=== PATIENT | male | born 1960 | race Caucasian/White ===

== ENCOUNTER 2017-02-15 06:00 | Day surgery (SDC) | payer BC ==
[2017-02-10 14:38] VITALS: BMI 26.3
[~2017-02-15 06:00] MED LIST: DEXAMETHASONE SOD PHOSPHATE 10 MG/ML 1 ML VIAL IV ONE; HEPARIN SODIUM,PORCINE 5,000 UNIT/ML 1 ML VIAL SQ ONE; LACTATED RINGERS 1,000 ML IV SCH; LIDOCAINE 1% 20 ML VIAL (10MG/ML) FOR IV START INTRADERMA PRN; ONDANSETRON 4 MG/2 ML VIAL IVP ONE; SCOPOLAMINE 1.5MG/72HR PATCH TRANSDERM ONE; ceFAZolin 2 GM in SODIUM CHLORIDE 0.9% 100 ML IVPB ONE
--- NOTE | 2017-02-15 07:53 | P.GSHP ---
History of Present Illness H&P Date: 02/15/17 Chief Complaint: Recurrent right inguinal hernia This is a 57-year-old male who has developed a recurrent right internal hernia. Patient resents today for open repair of right inguinal hernia. Past Medical History Past Medical History: Hyperlipidemia, Hypertension Additional Past Medical History / Comment(s): PAST HX HYPOGLYCEMIA, NONE SINCE 2000. GOUT. CURRENT RT INGUINAL HERNIA. History of Any Multi-Drug Resistant Organisms: None Reported Past Surgical History: Appendectomy, Joint Replacement Additional Past Surgical History / Comment(s): COLONOSCOPY. TOTAL LT KNEE , ROBOTIC HERNIA Past Anesthesia/Blood Transfusion Reactions: No Reported Reaction Additional Past Anesthesia/Blood Transfusion Reaction / Comment(s): ADOPTED -NO HISTORY Past Psychological History: No Psychological Hx Reported Smoking Status: Former smoker Past Alcohol Use History: Occasional Additional Past Alcohol Use History / Comment(s): STARTED SMOKING AT AGE 15 QUIT IN 1999 SMOKED 3/4-1PPD Past Drug Use History: None Reported - Past Family History Mother Family Medical History: Unable to Obtain Medications and Allergies Home Medications Medication Instructions Recorded Confirmed Type No Known Home Medications [No 02/10/17 02/15/17 History Known Home Medications] Allergies Allergy/AdvReac Type Severity Reaction Status Date / Time No Known Allergies Allergy Verified 02/15/17 06:12 Surgical - Exam Vital Signs Temp Pulse Resp BP Pulse Ox 97.0 F L 51 L 16 142/89 97 02/15/17 06:17 02/15/17 06:17 02/15/17 06:17 02/15/17 06:17 02/15/17 06:17 - General well developed, well nourished, no distress - Eyes PERRL - ENT normal pinna, normal nares - Neck no masses - Respiratory normal expansion - Cardiovascular Rhythm: regular - Abdomen Abdomen: soft, non tender Hernia: inguinal (Right recurrent inguinal hernia) Assessment and Plan Plan: Recurrent right inguinal hernia. We'll perform open repair.
[2017-02-15] MEDS ORDERED: KETOROLAC 30 MG/ML 1 ML VIAL ONE (07:58)
[2017-02-15] MEDS ORDERED: MIDAZOLAM 2 MG/2 ML VIAL ONE (07:58)
[2017-02-15] MEDS ORDERED: SUCCINYLCHOLINE CHLORIDE 100 MG/5 ML SYR IV ONE (07:58)
[2017-02-15] MEDS ORDERED: fentaNYL (PF) 50 MCG/ML 2 ML AMP ONE (07:58)
[2017-02-15] MEDS ORDERED: PROPOFOL 10 MG/ML 20 ML VIAL IV ONE (07:58)
[2017-02-15] MEDS ORDERED: LIDOCAINE 1% INJ 10MG/ML (20 ML MDV) ONE (07:58)
[2017-02-15] MEDS ORDERED: BUPIVACAINE (PF) 0.25% 30 ML VIAL SQ ONE (08:41)
--- NOTE | 2017-02-15 08:47 | P.OP ---
Date of Procedure: 02/15/17 Preoperative Diagnosis: Recurrent right inguinal hernia Postoperative Diagnosis: Recurrent right inguinal hernia Procedure(s) Performed: Right inguinal hernia repair Implants: Anesthesia: MICHAELA Surgeon: Renato Dillon Estimated Blood Loss (ml): 5 Pathology: none sent Condition: stable Disposition: PACU Indications for Procedure: Operative Findings: Description of Procedure: DESCRIPTION OF PROCEDURE: The patient was placed in the supine position after receiving adequate anesthesia. Patients groin was prepped and draped in the usual sterile fashion. A standard hernia incision was made and the subcutaneous tissues were divided with electrocautery. The fascia of the external oblique was exposed. A sebastian the fascia was made with #15 blade. The fascia was then opened with pair of Metzenbaum scissors. A Weitlaner retractor was placed in the wound and the cord structures were grasped and dissected free from the inguinal canal. A rubber Monty drain was placed around the cord structures. The hernial sac was seen on the anterior-medial portion of the cord and this was dissected free from the cord. The hernia sac was then invaginated to the peritoneal cavity. Using blunt finger dissection, the preperitoneal space was dissected and then the Prolene hernial mesh plug was placed into the prepared space. The inferior leaf was expanded. The superior leaf was secured to the pubic tubercle using 2-0 Prolene suture. The lateral portion of the superior leaf was incised and cords tied and secured to the transversalis fascia using 2-0 Prolene suture. Fascia of the external oblique was then closed using #0 Vicryl suture. The Monty drain was removed. The Scarpas fascia was then closed with 3-0 Vicryl suture and skin was closed with 3-0 Monocryl. Patient tolerated procedure well.
[2017-02-15 09:05] VITALS: TEMP 96.8
[2017-02-15] MEDS: HYDROmorphone 1 MG/ML 1 ML SYRINGE IVP PRN ×2 (09:13→09:18)
[2017-02-15 09:31] VITALS: RESP 16
[2017-02-15 10:00] VITALS: BP 145/87; PULSE 47
== END 2017-02-15 10:19 | disposition home or self-care (01) ==
LOC: OR 06:00
PROVIDERS: ATTEND Surgery
DX: K40.90 Unilateral inguinal hernia, without obstruction or gangrene, not specified as recurrent (principal); Z87.891 Personal history of nicotine dependence
CPT/HCPCS: 49520; C1781; J2250; J1644; J1100; J0690; J2405; J2001; J3010; J1885; J1170; J0330; J2704

== ENCOUNTER 2021-01-08 10:43 | Inpatient (IN) | payer BC ==
--- NOTE | 2021-01-08 11:15 | ED ---
General Adult HPI - General Chief complaint: Neuro Symptoms/Deficit Stated complaint: vision loss/2x last week Time Seen by Provider: 01/08/21 10:59 Source: patient, family, RN notes reviewed Mode of arrival: ambulatory Limitations: no limitations - History of Present Illness Initial comments: Patient is a pleasant 61-year-old male presenting to the emergency department with concern for loss of vision with left eye. Incident last occurred 2 days ago and lasted 3-5 minutes. Patient states everything was collins. Patient could not see specific silhouettes. Patient unclear if he can see light or dark. This was painless. Patient did have a similar episode a few days prior to that however did not last as long. Vision is completely normal at this time. No speech Problems. No extremity weakness. No confusion. - Related Data Previous Rx's Medication Instructions Recorded Docusate [Colace] 100 mg PO BID #20 capsule 02/15/17 HYDROcodone/APAP 7.5-325MG [Peralta 1 each PO Q4H PRN #60 tab 02/15/17 7.5] Allergies Allergy/AdvReac Type Severity Reaction Status Date / Time No Known Allergies Allergy Verified 01/08/21 10:58 Review of Systems ROS Statement: Those systems with pertinent positive or pertinent negative responses have been documented in the HPI. ROS Other: All systems not noted in ROS Statement are negative. Constitutional: Denies: fever Eyes: Reports: as per HPI, vision change ENT: Denies: ear pain Respiratory: Denies: cough Cardiovascular: Denies: chest pain Endocrine: Denies: fatigue Gastrointestinal: Denies: abdominal pain Genitourinary: Denies: dysuria Musculoskeletal: Denies: back pain Skin: Denies: rash Neurological: Denies: headache, weakness, confusion Past Medical History Past Medical History: Hyperlipidemia, Hypertension Additional Past Medical History / Comment(s): PAST HX HYPOGLYCEMIA, NONE SINCE 2000. GOUT. CURRENT RT INGUINAL HERNIA. History of Any Multi-Drug Resistant Organisms: None Reported Past Surgical History: Appendectomy, Joint Replacement Additional Past Surgical History / Comment(s): COLONOSCOPY. TOTAL LT KNEE , ROBOTIC HERNIA Past Anesthesia/Blood Transfusion Reactions: No Reported Reaction Additional Past Anesthesia/Blood Transfusion Reaction / Comment(s): ADOPTED -NO HISTORY Past Psychological History: No Psychological Hx Reported Smoking Status: Never smoker Past Alcohol Use History: Occasional Past Drug Use History: Marijuana - Past Family History Mother Family Medical History: Unable to Obtain General Exam Limitations: no limitations General appearance: alert, in no apparent distress Head exam: Present: atraumatic Eye exam: Present: normal appearance, PERRL, EOMI Expanded Eyelids: Normal Inspection: Bilateral Pupils: Regular, Round: Bilateral, Reactive: Bilateral Sclera/Conjunctival: Normal Inspection: Bilateral Posterior chamber: Normal Inspection: Bilateral ENT exam: Present: normal oropharynx Neck exam: Present: normal inspection Respiratory exam: Present: normal lung sounds bilaterally Cardiovascular Exam: Present: regular rate, normal rhythm GI/Abdominal exam: Present: soft. Absent: tenderness Extremities exam: Present: normal inspection Neurological exam: Present: alert, oriented X3, CN II-XII intact. Absent: motor sensory deficit Expanded Neurological exam: Present: protecting the airway Speech: Present: fluid speech Cranial nerves: EOM's Intact: Normal, Facial Sensation: Normal Sensory exam: Upper Extremity Light Touch: Normal, Lower Extremity Light Touch: Normal Motor strength exam: RUE: 5, LUE: 5, RLE: 5, LLE: 5 Eye Response: (4) open spontaneously Motor Response: (6) obeys commands Verbal Response: (5) oriented Psychiatric exam: Present: normal affect, normal mood Skin exam: Present: normal color Course Vital Signs 01/08/21 01/08/21 10:55 12:32 Temperature 98.3 F Pulse Rate 52 L 46 L Respiratory 18 16 Rate Blood Pressure 136/83 128/80 O2 Sat by Pulse 93 L 99 Oximetry - Reevaluation(s) Reevaluation #1: 01/08/21 11:57 Case was discussed with Dr. Haynes with ophthalmology who states he would be happy to see patient in office however has more concern for neurological cause of symptoms. EKG Findings - EKG Comments: EKG Findings:: Sinus bradycardia with a rate of 42. WV 136. QRS 100. QT 440. QTc 367. Normal axis. Normal QRS. No acute ST change. Medical Decision Making - Lab Data Result diagrams: 01/08/21 11:36 01/08/21 11:36 Lab Results 01/08/21 01/08/21 01/08/21 Range/Units 11:36 11:36 11:36 WBC 6.0 (3.8-10.6) k/uL RBC 4.91 (4.30-5.90) m/uL Hgb 15.2 (13.0-17.5) gm/dL Hct 44.1 (39.0-53.0) % MCV 89.9 (80.0-100.0) fL MCH 31.1 (25.0-35.0) pg MCHC 34.5 (31.0-37.0) g/dL RDW 13.2 (11.5-15.5) % Plt Count 206 (150-450) k/uL MPV 7.4 Neutrophils % 64 % Lymphocytes % 24 % Monocytes % 5 % Eosinophils % 5 % Basophils % 0 % Neutrophils # 3.9 (1.3-7.7) k/uL Lymphocytes # 1.4 (1.0-4.8) k/uL Monocytes # 0.3 (0-1.0) k/uL Eosinophils # 0.3 (0-0.7) k/uL Basophils # 0.0 (0-0.2) k/uL PT 10.4 (9.0-12.0) sec INR 1.0 (<1.2) APTT 25.1 (22.0-30.0) sec Sodium 140 (137-145) mmol/L Potassium 4.5 (3.5-5.1) mmol/L Chloride 107 (98-107) mmol/L Carbon Dioxide 27 (22-30) mmol/L Anion Gap 6 mmol/L BUN 18 (9-20) mg/dL Creatinine 0.85 (0.66-1.25) mg/dL Est GFR (CKD-EPI)AfAm >90 (>60 ml/min/1.73 sqM) Est GFR (CKD-EPI)NonAf >90 (>60 ml/min/1.73 sqM) Glucose 95 (74-99) mg/dL Calcium 9.6 (8.4-10.2) mg/dL Total Bilirubin 0.8 (0.2-1.3) mg/dL AST 25 (17-59) U/L ALT 20 (4-49) U/L Alkaline Phosphatase 37 L (38-126) U/L Troponin I (0.000-0.034) ng/mL Total Protein 7.1 (6.3-8.2) g/dL Albumin 4.2 (3.5-5.0) g/dL 01/08/21 Range/Units 11:36 WBC (3.8-10.6) k/uL RBC (4.30-5.90) m/uL Hgb (13.0-17.5) gm/dL Hct (39.0-53.0) % MCV (80.0-100.0) fL MCH (25.0-35.0) pg MCHC (31.0-37.0) g/dL RDW (11.5-15.5) % Plt Count (150-450) k/uL MPV Neutrophils % % Lymphocytes % % Monocytes % % Eosinophils % % Basophils % % Neutrophils # (1.3-7.7) k/uL Lymphocytes # (1.0-4.8) k/uL Monocytes # (0-1.0) k/uL Eosinophils # (0-0.7) k/uL Basophils # (0-0.2) k/uL PT (9.0-12.0) sec INR (<1.2) APTT (22.0-30.0) sec Sodium (137-145) mmol/L Potassium (3.5-5.1) mmol/L Chloride (98-107) mmol/L Carbon Dioxide (22-30) mmol/L Anion Gap mmol/L BUN (9-20) mg/dL Creatinine (0.66-1.25) mg/dL Est GFR (CKD-EPI)AfAm (>60 ml/min/1.73 sqM) Est GFR (CKD-EPI)NonAf (>60 ml/min/1.73 sqM) Glucose (74-99) mg/dL Calcium (8.4-10.2) mg/dL Total Bilirubin (0.2-1.3) mg/dL AST (17-59) U/L ALT (4-49) U/L Alkaline Phosphatase (38-126) U/L Troponin I <0.012 (0.000-0.034) ng/mL Total Protein (6.3-8.2) g/dL Albumin (3.5-5.0) g/dL - Radiology Data Radiology results: report reviewed (Computed tomography scan of the brain negative for acute abnormality), image reviewed ( reveals no acute process) Disposition Clinical Impression: Transient cerebral ischemia Disposition: ADMITTED IP TO THIS [facility] Is patient prescribed a controlled substance at d/c from ED?: No Referrals: None,Stated [Primary Care Provider] - 1-2 days Decision Time: 12:52
[2021-01-08 11:48] LABS: Basophils % (A) 0 %; Eosinophils # (A) 0.3 k/uL (0-0.7); Eosinophils % (A) 5 %; HCT 44.1 % (39.0-53.0); HGB 15.2 gm/dL (13.0-17.5); Lymphocytes # (A) 1.4 k/uL (1.0-4.8); Lymphocytes % (A) 24 %; MCH 31.1 pg (25.0-35.0); MCHC 34.5 g/dL (31.0-37.0); MCV 89.9 fL (80.0-100.0); Mean Platelet Volume 7.4; Monocytes # (A) 0.3 k/uL (0-1.0); Monocytes % (A) 5 %; Neutrophils # (A) 3.9 k/uL (1.3-7.7); Neutrophils % (A) 64 %; Platelet Count 206 k/uL (150-450); RBC 4.91 m/uL (4.30-5.90); RDW 13.2 % (11.5-15.5)
[2021-01-08 11:58] LABS: ALT 20 U/L (4-49); AST 25 U/L (17-59); African American GFR (CKD) >90 (>60 ml/min/1.73 sqM); Albumin 4.2 g/dL (3.5-5.0); Alkaline Phosphatase 37 U/L (38-126); Anion Gap 6 mmol/L; Blood Urea Nitrogen 18 mg/dL (9-20); Calcium 9.6 mg/dL (8.4-10.2); Carbon Dioxide 27 mmol/L (22-30); Chloride 107 mmol/L (98-107); Glucose 95 mg/dL (74-99); Non-African American GFR(CKD) >90 (>60 ml/min/1.73 sqM); Potassium 4.5 mmol/L (3.5-5.1); Sodium 140 mmol/L (137-145); Total Bilirubin 0.8 mg/dL (0.2-1.3); Total Protein 7.1 g/dL (6.3-8.2)
--- NOTE | 2021-01-08 12:08 | CT ---
EXAMINATION TYPE: CT brain wo con for TPA DATE OF EXAM: 01/08/2021 HISTORY: loss of vision Lt eye 2 days ago. Acute onset neurological deficit. Code stroke. CT DLP: 1059.4 mGycm. Automated Exposure Control for Dose Reduction was Utilized. TECHNIQUE: CT scan of the head is performed without contrast. COMPARISON: None. FINDINGS: There is no acute intracranial hemorrhage or midline shift identified. Ventricles and sul ci are within normal limits in size for patient's age. Cormier-white matter differentiation fairly well maintained. The globes are intact and the visualized sinuses are clear. IMPRESSION: No acute intracranial hemorrhage or midline shift.
--- NOTE | 2021-01-08 12:10 | XR ---
EXAMINATION TYPE: XR chest 2V DATE OF EXAM: 01/08/2021 COMPARISON: NONE HISTORY: Altered mental status, vision loss, weakness. TECHNIQUE: Frontal and lateral views of the chest are obtained. FINDINGS: There is mild chronic parenchymal changes without suspicious focal air space opacity, pleu ral effusion, or pneumothorax seen. The cardiac silhouette size is within normal limits. The osseo us structures are intact. Overlying EKG leads are present. IMPRESSION: No acute cardiopulmonary process.
[2021-01-08 12:17] LABS: Partial Thromboplastin Time 25.1 sec (22.0-30.0); Prothrombin Time 10.4 sec (9.0-12.0)
[2021-01-08] MEDS ORDERED: ASPIRIN 325 MG TAB PO STA (12:52)
[2021-01-08] MEDS ORDERED: ATORVASTATIN 80 MG TAB PO STA (13:18)
--- NOTE | 2021-01-08 13:33 | US ---
EXAMINATION TYPE: US carotid duplex BILAT DATE OF EXAM: 01/08/2021 COMPARISON: NONE CLINICAL HISTORY: Stenosis. Pt states transient vision loss in left eye EXAM MEASUREMENTS: RIGHT: Peak Systolic Velocity (PSV) cm/sec ----- Right CCA: 76.8 ----- Right ICA: 96.6 ----- Right ECA: 116.1 ICA/CCA ratio: 1.3 RIGHT: End Diastole cm/sec ----- Right CCA: 21.9 ----- Right ICA: 30.7 ----- Right ECA: 11.1 LEFT: Peak Systolic Velocity (PSV) cm/sec ----- Left CCA: 49.0 ----- Left ICA: 392.8 ----- Left ECA: 133.8 ICA/CCA ratio: 8.0 LEFT: End Diastole cm/sec ----- Left CCA: 7.8 ----- Left ICA: 123.7 ----- Left ECA: 17.5 VERTEBRALS (direction of flow): Right Vertebral: Antegrade Left Vertebral: Antegrade Rhythm: Normal Significant, high-grade stenosis within left ICA intimal thickening is present. There are focal p laques present. IMPRESSION: 1. Atheromatous plaquing activity into significant flow-limiting stenosis greater than 70% within the left internal carotid artery. Criteria for Assigning % of Stenosis / Diameter reduction (Estimation based on the indirect measurements of the internal carotid artery velocities (ICA PSV). 1. Normal (no stenosis)=ICA PSV < 125 cm/s: ratio < 2.0: ICA EDV<40 cm/s. 2. Less than 50% stenosis=ICA PSV < 125 cm/s: ratio < 2.0: ICA EDV<40 cm/s. 3. 50 to 69% stenosis=ICA PSV of 125 to 230 cm/s: ration 2.0 ? 4.0: ICA EDV 40-100 cm/s. 4. Greater than 70% stenosis to near occlusion= ICA PSV > 230 cm/s: ratio > 4.0: ICA EDV > 100 cm/s. 5. Near occlusion= ICA PSV velocities may be low or undetectable: variable ratio and ICA EDV. 6. Total occlusion=unable to detect flow.
[2021-01-08] MEDS: SODIUM CHLORIDE 0.9% 1,000 ML IV SCH ×2 (13:34→23:30)
[2021-01-08] MEDS ORDERED: CLOPIDOGREL 75 MG TAB PO STA (13:47)
--- NOTE | 2021-01-08 14:09 | P.CNNES ---
History of Present Illness Consult date: 01/08/21 Requesting physician: Sánchez Koch Reason for Consult: vision loss left eye concern for transient ischemic attack History of Present Illness: This is a 61-year-old gentleman with history of hyperlipidemia, hypertension that presented to the emergency department on 01/08/2021 for vision loss over the left eye. Per the patient and the last 1 week he noticed some vision change and felt off tired but could not make out of the vision change and which I was. Then about 2 days ago in the afternoon all of a sudden he noticed that the left eye all of a sudden became collins and he could not see out of it and the episode lasted for about 3-10 minutes. He felt weak during the episode and tired and it was a diffuse. Denied any focal weakness, numbness, difficulty getting his words out. Denies of any double vision. Denies any jaw pain or pain with chewing. His symptoms resolved and he has not had any further episode. He said that for the last couple weeks possibly 2-3 weeks he's been having left-sided headache and he felt that was a dull that was intermittent, stated it was 8/10 but cannot tell me how long it lasted for. Denied any photophobia, phonophobia, nausea or vomiting. He's been having headaches since the getting his covid vaccine about a month ago ([employer]). He did state that he was in the past on blood pressure medication for his hypertension as well as the cholesterol medication but has not been on it for years since he was having the side effects such as cramping. He said that when he is to follow up with his primary care he was told that his blood pressure was normal but the last time he followed up with them was possibly 2-1/2 years ago. She denies any history of migraines in the past. As stated above he feels back to his baseline. He denies of any stroke or transient ischemic attack Initial vital signs: Blood pressure of 136/83, heart rate of 52, respiratory of 18, temperature of 98.3 Fahrenheit oral and the pulse ox of [address] of the head is reported as no acute intracranial hemorrhage or midline shift. EKG is reported as marked sinus bradycardia. Abnormal EKG. The basic CBC and then BMP were reviewed and were normal. The glucose was 95 and that was a serum which is considered normal. Coagulation study is PT of 10.4, INR is 1.0 and PTT of 25.1. Review of Systems Review of system: The 12 point system was reviewed and apparent positive and negative per HPI. Past Medical History Past Medical History: Hyperlipidemia, Hypertension Additional Past Medical History / Comment(s): PAST HX HYPOGLYCEMIA, NONE SINCE 2000. GOUT. CURRENT RT INGUINAL HERNIA. History of Any Multi-Drug Resistant Organisms: None Reported Past Surgical History: Appendectomy, Joint Replacement Additional Past Surgical History / Comment(s): COLONOSCOPY. TOTAL LT KNEE , ROBOTIC HERNIA Past Anesthesia/Blood Transfusion Reactions: No Reported Reaction Additional Past Anesthesia/Blood Transfusion Reaction / Comment(s): ADOPTED -NO HISTORY Past Psychological History: No Psychological Hx Reported Smoking Status: Never smoker Past Alcohol Use History: Occasional Past Drug Use History: Marijuana - Past Family History Mother Family Medical History: Unable to Obtain Father Family Medical History: Diabetes Mellitus Additional Family Medical History / Comment(s): Pt is adopted and only knows diabetes ran on natural father's side of family. Medications and Allergies Home Medications Medication Instructions Recorded Confirmed Type No Known Home Medications 01/08/21 01/08/21 History Allergies Allergy/AdvReac Type Severity Reaction Status Date / Time No Known Allergies Allergy Verified 01/08/21 12:53 Physical Examination - Vital Signs Vital Signs: Vital Signs Temp Pulse Resp BP Pulse Ox 01/08/21 12:32 46 L 16 128/80 99 01/08/21 10:55 98.3 F 52 L 18 136/83 93 L Intake and Output 01/07/21 01/08/21 01/08/21 22:59 06:59 14:59 Other: Weight 92.986 kg GENERAL: The patient is lying in bed and is not in acute distress. CHEST: The heart rate is regular rate rhythm. No murmurs to auscultation. No carotid bruit bilaterally. LUNG: Clear to auscultation bilaterally no wheezing noted throughout. Not labored breathing. ABDOMEN/GI: Bowel sounds present in all 4 quadrants. No tenderness to palpation throughout. NEUROLOGICAL: Higher mental function: The patient is awake, alert, oriented to self, place and time. Patient is following commands. No aphasia and no neglect. Cranial nerves: The pupils are round, right is 5mm and left 4mm and reactive to light and accommodation. Visual serrano are full to confrontation throughout. Visual acuity is 20/25 OD and 20/30 OS without correction. Extraocular movement is intact no nystagmus is noted. Facial sensation is normal to touch throughout. The facial strength is normal throughout. Hearing is normal bilaterally to hand rub. Tongue is midline and moved dset-[id number]-[id number] without any difficulty. No dysarthria is noted. Shoulder shrug is normal bilaterally. Motor: Gait is deferred. The strength is 5 over 5 throughout. Normal tone and bulk. Cerebellum: Normal finger to nose heel to chin bilaterally. Sensation: Sensation is normal to touch throughout. Reflexes (right/left):0-1+ over the left knee (has prosthetic knee) . Otherwise 2+ throughout. Plantars are downgoing bilaterally. Results - Laboratory Findings CBC and BMP: 01/08/21 11:36 01/08/21 11:36 Abnormal Lab Findings: Abnormal Labs 01/08/21 11:36 Alkaline Phosphatase 37 L Assessment and Plan Assessment: Amarousis fugax (transient episode of left vision loss). Possibly due to patie nt risk factor of HTN and hypercholestremia (not taking medication since had sheridan-effect to them). Hypertension (not compliant with medication) Hyperlipidemia (not compliant with medication) Plan: The patient was given aspirin 325 once was started on aspirin 325 daily. I started the patient on aspirin 81 mg and Plavix 75 mg daily for now. I loaded with Plavix 300mg once and Lipitor 80 mg once then to be on the Lipitor 40 mg daily for secondary stroke prophylaxis (will not start Lipitor 80mg daily since in past has side-effects with statin but does not recall name or dose). I ordered MRI of the brain. I ordered CT of the head and neck to rule out any intracranial or carotid stenosis Lipid panel, 2-D echo and carotid duplex are ordered by the ED team. Ordered TSH, ESR and CRP level. On continuous cardiac monitoring Q 4hour neuro checks. PT, OT and CIVIL DRAFTER are consulted. Ophthalmology team is consulted. The plan is discussed with the patient and his nurse. Thank you for the consultation. Tk Silver M.D. Neuro-hospitalist Time with Patient: Greater than 30
--- NOTE | 2021-01-08 16:08 | CT ---
EXAMINATION TYPE: CT angio head neck DATE OF EXAM: 01/08/2021 HISTORY: Left vision loss COMPARISON: Carotid ultrasound earlier today. CT DLP: 600.1 mGycm. Automated Exposure Control for Dose Reduction was Utilized. TECHNIQUE: CTA scan of the head and neck are performed with IV Contrast, patient injected with 65 mL of Isovue 370, axial images are obtained, coronal and sagittal reformatted images are reviewed. Thre e-D reconstructed images are created on an independent workstation and reviewed. FINDINGS: Carotid/Vascular Structures: Mild peripheral plaque at level aortic arch. Normal three-vessel origin from aortic arch. Normal origin right common carotid artery from right brachiocephalic artery. No sig nificant plaque or stenosis in common carotid arteries bilaterally. There is mild mixed plaque right carotid bulb with more prominent noncalcified plaque extending into the external carotid artery. Ther e is additional abnormal soft tissue probable noncalcified plaque surrounding the proximal right inte rnal carotid artery without significant stenosis. Some narrowing is present measuring under 50%. Mild to moderate calcified plaque distal supraclinoid segment. More moderate to severe mixed plaque left carotid bulb extends into internal and external carotid art eries. There is significant stenosis on the left confirmed. There is short segment of nonvisualized f low consistent with complete occlusion raw data image 405 for reference. Remainder left internal james tid artery shows diminished flow versus opposite right side. Patent bilateral external carotid arteri es without greater than 50% stenosis. Codominant vertebrobasilar system. Vertebral arteries are patent to basilar junction. Hypoplastic fina ateral posterior communicating arteries. No additional significant focal stenosis. Anterior circulati on shows poor visualization of anterior communicating artery. No significant focal stenosis or aneury sm. Other: Loss of normal cervical curvature with mild disc space narrowing C5-C6 and C6-C7 levels. S-sha ped scoliotic curvature on coronal images. IMPRESSION: Confirmation of significant stenosis proximal left internal carotid artery, complete occl usion over short segment is felt present. There is poor or diminished flow in the left internal carot id artery distal to this versus the opposite right side.
--- NOTE | 2021-01-08 21:08 | P.HPIM ---
History of Present Illness H&P Date: 01/08/21 Chief Complaint: Left eye blurred vision Patient is a 61-year-old male with a known history of hypertension, hyperlipidemia currently not on any medications and occasional marijuana use presents to ER with complaints of blurry vision in the left eye. Patient felt like everything was collins when he closes his right eye. Patient was able to see well by closing left eye. Patient had this episode occurred about 2 days ago and lasted about 3 to 5 minutes. Since then patient has been having some blurry vision. Denied any fever or chills. No cough or sputum production. No recent infection. No chest pain or shortness breath. No palpitations. No leg swelling. No focal weakness or slurred speech. No complaints of double vision. No jaw pain or temporal pain jaw claudication. Patient states that he had [employer] COVID-19 vaccine about a month ago and started having occasional headaches few days after. CT head showed no acute intracranial process Chest x-ray showed no acute cardiopulmonary process EKG showed marked sinus bradycardia. Abnormal EKG. Heart rate for 42 Laboratory data showed WBC 6.0 hemoglobin 15.2 and platelets 206 BUN 18 and creatinine 0.85 AST 25 ALT 20 alk phos 37 troponin less than 0.012 and coronavirus PCR not detected. Review of Systems Constitutional: Patient denies any fever or chills . No generalized weakness or weight loss. Abdomen: Patient denied nausea vomiting and diarrhea and abdominal pain. Cardiovascular: Patient denies any chest pain or short of breath no palpitations. Respiratory: patient denied any cough or sputum production. No shortness of breath Neurologic: Patient denied any numbness or tingling headache. Left eye blurred vision Musculoskeletal: Patient denies any complaints of joint swelling or deformity. Skin: Negative Psychiatric: Negative Endocrine: No heat or cold intolerance. No recent weight gain. Genitourinary: No dysuria or hematuria. All other 14 point ROS negative except the above Past Medical History Past Medical History: Hyperlipidemia, Hypertension Additional Past Medical History / Comment(s): PAST HX HYPOGLYCEMIA, NONE SINCE 2000. GOUT. CURRENT RT INGUINAL HERNIA. History of Any Multi-Drug Resistant Organisms: None Reported Past Surgical History: Appendectomy, Joint Replacement Additional Past Surgical History / Comment(s): COLONOSCOPY. TOTAL LT KNEE , ROBOTIC HERNIA Past Anesthesia/Blood Transfusion Reactions: No Reported Reaction Additional Past Anesthesia/Blood Transfusion Reaction / Comment(s): ADOPTED -NO HISTORY Past Psychological History: No Psychological Hx Reported Smoking Status: Never smoker Past Alcohol Use History: Occasional Past Drug Use History: Marijuana - Past Family History Mother Family Medical History: Unable to Obtain Additional Family Medical History / Comment(s): Pt is adopted and only knows heart disease ran on natural mother's side of family Father Family Medical History: Diabetes Mellitus Additional Family Medical History / Comment(s): Pt is adopted and only knows diabetes ran on natural father's side of family. Medications and Allergies Home Medications Medication Instructions Recorded Confirmed Type No Known Home Medications 01/08/21 01/08/21 History Allergies Allergy/AdvReac Type Severity Reaction Status Date / Time No Known Allergies Allergy Verified 01/08/21 12:53 Physical Exam Vitals: Vital Signs Temp Pulse Resp BP Pulse Ox 01/08/21 13:41 45 L 16 130/98 99 01/08/21 12:32 46 L 16 128/80 99 01/08/21 10:55 98.3 F 52 L 18 136/83 93 L Intake and Output 01/07/21 01/08/21 01/08/21 22:59 06:59 14:59 Other: Weight 92.986 kg PHYSICAL EXAMINATION: Patient is lying in the bed comfortably, no acute distress, awake alert and oriented.. HEENT: Normocephalic. Neck is supple. Pupils reactive. Nostrils clear. Oral cavity is moist. Ears reveal no drainage. Neck reveals no JVD, carotid bruits, or thyromegaly. CHEST EXAMINATION: Trachea is central. Symmetrical expansion. Lung serrano clear to auscultation and percussion. CARDIAC: Normal S1, S2 with no gallops. No murmurs ABDOMEN: Soft. Bowel sounds normal. No organomegaly. No abdominal bruits. Extremities: reveal no edema. No clubbing or cyanosis Neurologically awake, alert, oriented x3 with well-coordinated movements. No focal deficits noted Skin: No rash or skin lesions. Psychiatric: Coperative. Nonsuicidal Musculoskeletal: No joint swelling or deformity. Normal range of motion. Results CBC & Chem 7: 01/08/21 11:36 01/08/21 11:36 Labs: Abnormal Lab Results - Last 24 Hours (Table) 01/08/21 Range/Units 11:36 Alkaline Phosphatase 37 L (38-126) U/L Thrombosis Risk Factor Assmnt - DVT/VTE Prophylaxis DVT/VTE Prophylaxis: Pharmacologic Prophylaxis ordered - Choose All That Apply Any of the Below Risk Factors Present?: Yes Other Risk Factors: Yes Each Risk Factor Represents 2 Points: Age 61-74 years Other congenital or acquired thrombophilia - If yes, enter type in comment: No Each Risk Factor Represents 5 Points: Stroke (< 1 month) Thrombosis Risk Factor Assessment Total Risk Factor Score: 7 Thrombosis Risk Factor Assessment Level: High Risk Assessment and Plan Assessment: Transient left eye vision loss. Rule out acute CVA Sinus bradycardia Hypertension not on any medications Hyperlipidemia not on any medications at home History of marijuana use DVT prophylaxis Plan: Patient will be continued telemetry monitoring. Started on aspirin and Plavix as per neurology recommendations. Patient was given a dose of aspirin 325 mg once in the ER. Loading dose of Plavix was given. Stroke work-up including MRI of the brain and CT angiogram of the head and neck was ordered. 2D echocardiogram Follow-up TSH A1c level and B12 and CRP levels. Neurology is on board. Further recommendations based on the clinical course. Time with Patient: Greater than 30
[2021-01-09 00:43] LABS: C Reactive Protein <0.4 mg/dL (0.0-0.8)
[2021-01-09 01:34] LABS: Hemoglobin A1C 5.6 % (4.0-6.0)
[2021-01-09] MEDS: SODIUM CHLORIDE 0.9% 1,000 ML IV SCH ×2 (07:59→10:25)
[2021-01-09] MEDS: ASPIRIN 81 MG PO SCH (07:59)
--- NOTE | 2021-01-09 08:21 | ECHOF ---
Referral Reason:Thrombus MEASUREMENTS -------- HEIGHT: 185.4 cm WEIGHT: 93.0 kg BP: 128/80 RVIDd: 3.4 cm (< 3.3) IVSd: 1.3 cm (0.6 - 1.1) LVIDd: 4.9 cm (3.9 - 5.3) LVPWd: 1.2 cm (0.6 - 1.1) IVSs: 1.7 cm LVIDs: 3.1 cm LVPWs: 1.6 cm LA Diam: 3.7 cm (2.7 - 3.8) LAESV Index (A-L): 28.66 ml/m Ao Diam: 4.1 cm (2.0 - 3.7) AV Cusp: 2.4 cm (1.5 - 2.6) MV EXCURSION: 15.293 mm (> 18.000) MV EF SLOPE: 141 mm/s (70 - 150) EPSS: 0.5 cm MV E Anil: 1.03 m/s MV DecT: 187 ms MV A Anil: 0.60 m/s MV E/A Ratio: 1.72 RAP: 15.00 mmHg RVSP: 49.77 mmHg FINDINGS -------- Sinus rhythm. This was a technically good study. The left ventricular size is normal. There is mild concentric left ventricular hypertrophy. Overa ll left ventricular systolic function is normal with, an EF between 60 - 65 %. The right ventricle is mildly enlarged. Normal LA size by volume 22+/-6 ml/m2. The right atrium is normal in size. Interatrial and interventricular septum intact. The aortic valve is trileaflet, and appears structurally normal. No aortic stenosis or regurgitation. Mild mitral regurgitation is present. Mild tricuspid regurgitation present. There is moderate pulmonary hypertension. The right ventric ular systolic pressure, as measured by Doppler, is 49.77mmHg. Trace/mild (physiologic) pulmonic regurgitation. The aortic root is dilated measuring 4.1cm. The inferior vena cava is dilated with poor inspiratory collapse which is consistent with estimated r ight atrial pressure of 15mmHg. There is no pericardial effusion. CONCLUSIONS -------- 1. The left ventricular size is normal. 2. There is mild concentric left ventricular hypertrophy. 3. Overall left ventricular systolic function is normal with, an EF between 60 - 65 %. 4. The right ventricle is mildly enlarged. 5. Normal LA size by volume 22+/-6 ml/m2. 6. The aortic valve is trileaflet, and appears structurally normal. No aortic stenosis or regurgitati on. 7. Mild mitral regurgitation is present. 8. Mild tricuspid regurgitation present. 9. There is moderate pulmonary hypertension. 10. The right ventricular systolic pressure, as measured by Doppler, is 49.77mmHg. 11. Trace/mild (physiologic) pulmonic regurgitation. 12. The aortic root is dilated measuring 4.1cm. 13. The inferior vena cava is dilated with poor inspiratory collapse which is consistent with estimat ed right atrial pressure of 15mmHg. 14. There is no pericardial effusion. HUMAN FACTORS ERGONOMIST: Yanelis Mireles RDCS
[2021-01-09] MEDS ORDERED: CLOPIDOGREL 75 MG TAB PO SCH (09:00)
[2021-01-09] MEDS ORDERED: ASPIRIN 325 MG TAB PO SCH (09:00)
--- NOTE | 2021-01-09 10:17 | P.GSCN ---
History of Present Illness Consult date: 01/09/21 Reason for Consult: Symptomatic left internal carotid artery stenosis Requesting physician: Tk Silver History of present illness: This is a pleasant 61-year-old male with a history of hyperlipidemia and hypertension that presented to the emergency department yesterday for vision loss over the left eye. He is a former smoker, smoked 1 PPD for 20 years, he quit 20 years ago. The patient states that last week he also noticed some vision change of the left eye. He states on Wednesday he noticed a sudden loss of vision in his left eye where became collins and he could not see out of that eye, the episode lasted approximately 3-10 minutes. He also felt weak during the episode and tired. Denying any focal weakness, numbness, speech difficulty or difficulty with swallowing. He also states that prior to last 2 weeks he had been having left-sided headaches that were dull and intermittent. He currently states his vision is normal other than having some possible blurriness. He denies double vision, headache, shortness of breath, chest pain, nausea, vomiting, upper or lower extremity weakness, difficulty speaking, or difficulty swallowing. CT of the brain shows no acute intracranial hemorrhage or midline shift Carotid Doppler shows right ICA 96.6, with an ICA/CCA ratio 1.3, left ICA 392.8, ICA/CCA ratio 8.0. Significant high-grade stenosis within the left ICA, intimal thickening is present. There are focal plaques present. Atheromatous plaquing activity into significant flow-limiting stenosis greater than 70% within the left internal carotid artery. CT angiogram of head and neck show confirmation of significant stenosis proximal left internal carotid artery, complete occlusion over a short segment is felt present. There is poor diminished flow in the left internal carotid artery dis tam to this versus the opposite right side. Right internal carotid artery without significant stenosis. There is some narrowing present measuring under 50%. Mild to moderate calcified plaque distal supraclinoid segment. Review of Systems A 14 point review systems was completed all pertinent positives and negatives as stated in the HPI Past Medical History Past Medical History: Hyperlipidemia, Hypertension Additional Past Medical History / Comment(s): PAST HX HYPOGLYCEMIA, NONE SINCE 2000. GOUT. CURRENT RT INGUINAL HERNIA. History of Any Multi-Drug Resistant Organisms: None Reported Past Surgical History: Appendectomy, Joint Replacement Additional Past Surgical History / Comment(s): COLONOSCOPY. TOTAL LT KNEE , ROBOTIC HERNIA Past Anesthesia/Blood Transfusion Reactions: No Reported Reaction Additional Past Anesthesia/Blood Transfusion Reaction / Comm: ADOPTED -NO H ISTORY Past Psychological History: No Psychological Hx Reported Smoking Status: Never smoker Past Alcohol Use History: Occasional Past Drug Use History: Marijuana - Past Family History Mother Family Medical History: Unable to Obtain Additional Family Medical History / Comment(s): Pt is adopted and only knows heart disease ran on natural mother's side of family Father Family Medical History: Diabetes Mellitus Additional Family Medical History / Comment(s): Pt is adopted and only knows diabetes ran on natural father's side of family. Medications and Allergies Home Medications Medication Instructions Recorded Confirmed Type No Known Home Medications 01/08/21 01/08/21 History Allergies Allergy/AdvReac Type Severity Reaction Status Date / Time No Known Allergies Allergy Verified 01/08/21 12:53 Surgical - Exam Vital Signs Temp Pulse Resp BP Pulse Ox 98.3 F 52 L 18 136/83 93 L 01/08/21 10:55 01/08/21 10:55 01/08/21 10:55 01/08/21 10:55 01/08/21 10:55 General appearance: The patient is alert, oriented, in no acute distress. HET: Head is normocephalic and atraumatic. Pupils are equal and reactive. Oropharynx is clear without lesions. Neck: Supple without lymphadenopathy. Trachea midline. No audible carotid bruit. Heart: S1 S2. Regular rate and rhythm. Lungs: Clear to auscultation. Abdomen: Soft, nontender, nondistended. Extremities: Normal skin color and turgor. No cyanosis, rash, ulceration, clubbing, or edema. Radial and pedal pulses are 2/4 bilaterally. Palpable femoral pulses bilaterally. Neurological: No focal deficits. Strength and sensation are grossly intact. Results - Labs 01/08/21 11:36 01/08/21 11:36 Abnormal Lab Results - Last 24 Hours (Table) 01/08/21 Range/Units 11:36 Alkaline Phosphatase 37 L (38-126) U/L Diabetes panel 01/08/21 01/08/21 Range/Units 11:36 11:36 Sodium 140 (137-145) mmol/L Potassium 4.5 (3.5-5.1) mmol/L Chloride 107 (98-107) mmol/L Carbon Dioxide 27 (22-30) mmol/L BUN 18 (9-20) mg/dL Creatinine 0.85 (0.66-1.25) mg/dL Glucose 95 (74-99) mg/dL Hemoglobin A1c 5.6 (4.0-6.0) % Calcium 9.6 (8.4-10.2) mg/dL AST 25 (17-59) U/L ALT 20 (4-49) U/L Alkaline Phosphatase 37 L (38-126) U/L Total Protein 7.1 (6.3-8.2) g/dL Albumin 4.2 (3.5-5.0) g/dL Thyroid panel 01/08/21 Range/Units 11:36 TSH 1.950 (0.350-5.500) uIU/mL Calcium panel 01/08/21 Range/Units 11:36 Calcium 9.6 (8.4-10.2) mg/dL Albumin 4.2 (3.5-5.0) g/dL Pituitary panel 01/08/21 01/08/21 Range/Units 11:36 11:36 Sodium 140 (137-145) mmol/L Potassium 4.5 (3.5-5.1) mmol/L Chloride 107 (98-107) mmol/L Carbon Dioxide 27 (22-30) mmol/L BUN 18 (9-20) mg/dL Creatinine 0.85 (0.66-1.25) mg/dL Glucose 95 (74-99) mg/dL Calcium 9.6 (8.4-10.2) mg/dL TSH 1.950 (0.350-5.500) uIU/mL Adrenal panel 01/08/21 Range/Units 11:36 Sodium 140 (137-145) mmol/L Potassium 4.5 (3.5-5.1) mmol/L Chloride 107 (98-107) mmol/L Carbon Dioxide 27 (22-30) mmol/L BUN 18 (9-20) mg/dL Creatinine 0.85 (0.66-1.25) mg/dL Glucose 95 (74-99) mg/dL Calcium 9.6 (8.4-10.2) mg/dL Total Bilirubin 0.8 (0.2-1.3) mg/dL AST 25 (17-59) U/L ALT 20 (4-49) U/L Alkaline Phosphatase 37 L (38-126) U/L Total Protein 7.1 (6.3-8.2) g/dL Albumin 4.2 (3.5-5.0) g/dL - Imaging Additional studies: CT of the brain shows no acute intracranial hemorrhage or midline shift Carotid Doppler shows right ICA 96.6, with an ICA/CCA ratio 1.3, left ICA 392.8, ICA/CCA ratio 8.0. Significant high-grade stenosis within the left ICA, intimal thickening is present. There are focal plaques present. Atheromatous plaquing activity into significant flow-limiting stenosis greater than 70% within the left internal carotid artery. CT angiogram of head and neck show confirmation of significant stenosis proximal left internal carotid artery, complete occlusion over a short segment is felt present. There is poor diminished flow in the left internal carotid artery distal to this versus the opposite right side. Right internal carotid artery without significant stenosis. There is some narrowing present measuring under 50%. Mild to moderate calcified plaque distal supraclinoid segment. Assessment and Plan Assessment: 1. Left symptomatic internal carotid artery stenosis greater than 70% 2. Visual changes within the left eye 3. History of hypertension 4. History of hyperlipidemia Plan: 1. Continue aspirin and Lipitor 40 mg at at bedtime 2. Appreciate recommendations from neurology 3. Await MRI and echo results 4. Carotid duplex and CTA reviewed 5. Plan for left carotid artery endarterectomy tomorrow with Dr. Andrade. The procedure risks and benefits were discussed with the patient and his . Patient is willing to proceed with procedure. 6. Nothing by mouth after midnight 7. Discontinue Plavix Thank you for this consultation, we will continue to follow next The impression and plan of care has been dictated as directed. Dr. Andrade I performed a history and examination of this patient, discussed the same with the dictator. I agree with the dictator's note ,documented as a scribe. Any additional findings or plans will be noted.
--- NOTE | 2021-01-09 11:43 | P.PN ---
Subjective Progress Note Date: 01/09/21 The patient was seen at bedside and he denies any further blurry vision over the left eye. He states that he is back to baseline since been in the hospital. He denies of any new weakness, numbness, visual disturbance, difficulty getting his words out swallowing. Objective - Vital Signs Vital signs: Vital Signs Temp 96.2 F L 01/09/21 07:00 Pulse 49 L 01/09/21 07:00 Resp 16 01/09/21 07:00 BP 168/95 01/09/21 07:00 Pulse Ox 96 01/09/21 07:00 Intake & Output 01/08/21 01/09/21 01/09/21 18:59 06:59 18:59 Weight 92.986 kg Other: Voiding Method Toilet Toilet # Voids 0 3 # Bowel Movements 0 - Exam GENERAL: The patient is lying in bed and is not in acute distress. NEUROLOGICAL: Higher mental function: The patient is awake, alert, oriented to self, place and time. Patient is following commands. No aphasia and no neglect. Cranial nerves: The pupils are round, right is 5mm and left 4mm and reactive to light and accommodation. Visual serrano are full to confrontation throughout. Visual acuity is 20/25 OD and 20/30 OS without correction. Extraocular movement is intact no nystagmus is noted. Facial sensation is normal to touch throughout. The facial strength is normal throughout. Hearing is normal bilaterally to hand rub. Tongue is midline and moved [id number] without any difficulty. No dysarthria is noted. Shoulder shrug is normal bilaterally. Motor: Gait is deferred. The strength is 5 over 5 throughout. Normal tone and bulk. Cerebellum: Normal finger to nose heel to chin bilaterally. Sensation: Sensation is normal to touch throughout. Reflexes (right/left):0-1+ over the left knee (has prosthetic knee) . Otherwise 2+ throughout. Plantars are downgoing bilaterally. - Labs CBC & Chem 7: 01/08/21 11:36 01/08/21 11:36 Labs: Abnormal Lab Results - Last 24 Hours (Table) 01/08/21 Range/Units 11:36 Alkaline Phosphatase 37 L (38-126) U/L Assessment and Plan Assessment: Amarousis fugax (transient episode of left vision loss) due to symptomatic left internal carotid artery stenosis (>70%) Symptomatic left ICA stenosis Hypertension (not compliant with medication) Hyperlipidemia (not compliant with medication) Plan: Carotid Duplex: Is reported as after [place] plaque in activity into significant flow limiting stenosis greater than 70% within the left internal carotid artery. CT angiography of the head and neck is reported as confirmation of significant stenosis proximal left internal carotid artery, complete occlusion over the short segment is felt present. There is poor or diminished flow in the left internal carotid artery distal to this versus the opposite right side. 2-D echo was reported as mild concentric left ventricular atrophy. Ejection fraction between 60 and 65%. Normal left atrial size by volume. Is moderate pulmonary hypertension. Continue Aspirin 81 mg and Plavix 75 mg daily. Continue Lipitor 40 mg daily for secondary stroke prophylaxis (will not start Lipitor 80mg daily since in past has side-effects with statins but does not recall name or dose). Pending MRI of the brain. TSH: 1.95 ESR (10 (normal) and CRP level (<0.4 normal) Pending lipid panel. On continuous cardiac monitoring Q 4hour neuro checks. PT, OT and SCRAP BURNER are consulted. I consulted vascular surgery team on 01/08/2021. From a neurological standpoint would recommend that the patient to get intervention of the left internal james tid artery as an inpatient. I notified the patient the benefits and the risk of having it done and he wants the to go ahead with intervention. Pending MRI the brain which will happen likely today then I'll have a discussion with a vascular surgical team. Ophthalmology team is consulted by ED team. Recommend to avoid any hypotensive episodes and keep the blood pressure permissive. Treatment of the systolic blood pressure is more than 180 or diastolic blood pressure is more than 100. UPDATE: MR the brain is reported as no MRI evidence for a recent infarct. Mild nonspecific white matter changes most likely on the basis of part of chronic small vessel ischemic change in the position of the patient's age. I personally reviewed the MRI and I don't see any acute or subacute ischemic stroke. I spoke with vascular surgeon nurse practitioner and she stated that the patient is scheduled tomorrow for carotid endarterectomy. The plan is discussed with the patient and his nurse. Tk Silver M.D. Neuro-hospitalist Time with Patient: Less than 30
[2021-01-09 12:31] LABS: Cholesterol 218 mg/dL (<200); HDL Cholesterol 43 mg/dL (40-60); LDL Cholesterol,Calculated 161 mg/dL (0-99); Triglycerides 71 mg/dL (<150)
--- NOTE | 2021-01-09 13:19 | MR ---
EXAMINATION TYPE: MR brain wo con DATE OF EXAM: 01/09/2021 COMPARISON: CT brain from yesterday HISTORY: Acute onset neural deficit on admission yesterday, left-sided vision loss. TECHNIQUE: Multiplanar, multisequence imaging of the brain and brainstem is performed without IV cont rast. FINDINGS: Diffusion weighted images demonstrate no evidence of a recent infarct or other diffusion abnormality. The ventricular system and cisternal spaces are normal in size and appearance. The brain volume is a ge appropriate. Scattered foci of T2 hyperintensity are seen throughout the white matter bilaterally. Approximately 20 small scattered lesions are seen. Lesions are nonspecific in appearance and distrib ution. Midline structures demonstrate normal morphology. The craniocervical junction appears within normal limits. Normal vascular flow voids are present. Mild mucosal thickening involving the ethmoid sinuses bilaterally is present. The globes are intact bilaterally. IMPRESSION: No MRI evidence for a recent infarct. Mild nonspecific white matter changes most likely o n basis of product of chronic small vessel ischemic change in position of this age.
--- NOTE | 2021-01-09 14:27 | P.CRDCN ---
History of Present Illness Consult date: 01/09/21 History of present illness: HISTORY OF PRESENT ILLNESS: This is a 61-year-old male with a past medical history significant for hypertension and hyperlipidemia. Patient does not follow with a hospital product specialist. We have been asked to see the patient in consultation for cardiac clearance for left carotid endarterectomy. Patient examined at the bedside by Dr. Larson. Patient originally presented to the ER due to loss of vision. Patient was found to have left internal carotid stenosis of greater than 70%. The patient is scheduled for left carotid endarterectomy tomorrow with Dr. Hsu. Blood pressure 168/95. Telemetry reveals sinus bradycardia with a heart rate in the 50s. EKG reveals sinus bradycardia with no signs of acute ischemia Chest xray negative for acute process Carotid Doppler: Stenosis greater than 70% within the left internal carotid artery Laboratory data: WBC 6.0. Hemoglobin 15.2. Platelet count 206. Sodium 140. Potassium 4.5. BUN 18. Creatinine 0.85. Troponin negative 1. Total cholesterol 218. LDL 161. Current home cardiac medications include none Echocardiogram obtained revealed ejection fraction 60-65%, mild mitral regurgitation, mild tricuspid regurgitation, and moderate pulmonary hypertension REVIEW OF SYSTEMS: At the time of my exam: CONSTITUTIONAL: Denies fever or chills. HEENT: Denies blurred vision, vision changes, or eye pain. Denies hemoptysis CARDIOVASCULAR: Denies chest pain. Denies orthopnea. Denies PND. Denies palpitations RESPIRATORY: Denies shortness of breath. GASTROINTESTINAL: Denies abdominal pain. Denies nausea or vomiting. HEMATOLOGIC: Denies bleeding disorders. GENITOURINARY: Denies any blood in urine. SKIN: Denies pruitis. Denies rash. PHYSICAL EXAM: VITAL SIGNS: Reviewed. GENERAL: Well-developed in no acute distress. HEENT: Head is normocephalic. Pupils are equal, round. Sclerae anicteric. Mucous membranes of the mouth are moist. Neck supple. No JVD or thyromegaly LUNGS: Respirations even and unlabored. Lungs essentially clear to auscultation bilaterally. HEART: Bradycardic. Regular rate and rhythm. S1 and S2 heard. ABDOMEN: Soft. Nondistended. Nontender. EXTREMITIES: Normal range of motion. No clubbing or cyanosis. Peripheral pulses intact. No lower extremity edema NEUROLOGIC: Awake and alert. Oriented x 3. ASSESSMENT: Amarousis fugax Left internal carotid artery stenosis Hypertension Hyperlipidemia PLAN: Continue aspirin and plavix Patient has been started on lipitor 40mg. He was unable to tolerate statins in the past due to side effects Continue telemetry monitoring Monitor blood pressure Patient is at an acceptable risk to undergo surgery and there are no absolute contraindications from a cardiac standpoint Further recommendations pending patient's course Nurse practitioner note has been reviewed by physician. Signing provider agrees with the documented findings, assessment, and plan of care. Past Medical History Past Medical History: Hyperlipidemia, Hypertension Additional Past Medical History / Comment(s): PAST HX HYPOGLYCEMIA, NONE SINCE 2000. GOUT. CURRENT RT INGUINAL HERNIA. History of Any Multi-Drug Resistant Organisms: None Reported Past Surgical History: Appendectomy, Joint Replacement Additional Past Surgical History / Comment(s): COLONOSCOPY. TOTAL LT KNEE , ROBOTIC HERNIA Past Anesthesia/Blood Transfusion Reactions: No Reported Reaction Additional Past Anesthesia/Blood Transfusion Reaction / Comment(s): ADOPTED -NO HISTORY Past Psychological History: No Psychological Hx Reported Smoking Status: Never smoker Past Alcohol Use History: Occasional Past Drug Use History: Marijuana - Past Family History Mother Family Medical History: Unable to Obtain Additional Family Medical History / Comment(s): Pt is adopted and only knows heart disease ran on natural mother's side of family Father Family Medical History: Diabetes Mellitus Additional Family Medical History / Comment(s): Pt is adopted and only knows diabetes ran on natural father's side of family. Medications and Allergies Home Medications Medication Instructions Recorded Confirmed Type No Known Home Medications 01/08/21 01/08/21 History Allergies Allergy/AdvReac Type Severity Reaction Status Date / Time No Known Allergies Allergy Verified 01/08/21 12:53 Physical Exam Vitals: Vital Signs Temp Pulse Resp BP Pulse Ox 01/09/21 07:00 96.2 F L 49 L 16 168/95 96 01/09/21 01:40 98.0 F 45 L 173/79 97 01/08/21 20:00 98.0 F 85 127/72 97 01/08/21 15:37 67 18 01/08/21 14:35 98.0 F 45 L 18 139/85 97 Intake and Output 01/08/21 01/09/21 01/09/21 22:59 06:59 14:59 Intake Total 740 Balance 740 Intake: Intake, IV Titration 500 Amount Sodium Chloride 0.9% 1, 500 000 ml @ 100 mls/hr IV . Q10H [facility] Rx#:[id number] Oral 240 Other: Voiding Method Toilet Toilet # Voids 1 3 Results 01/08/21 11:36 01/08/21 11:36 Lipids 01/09/21 Range/Units 09:13 Triglycerides 71 (<150) mg/dL Cholesterol 218 H (<200) mg/dL HDL Cholesterol 43 (40-60) mg/dL Current Medications Generic Name Dose Route Start Last Admin Trade Name Freq PRN Reason Stop Dose Admin Aspirin 81 mg 01/09/21 09:00 01/09/21 07:59 Aspirin 81 Mg PO 81 mg DAILY VANIA Administration Atorvastatin Calcium 40 mg 01/09/21 21:00 Atorvastatin 40 Mg Tab PO HS VANIA Clopidogrel Bisulfate 75 mg 01/09/21 09:00 01/09/21 07:59 Clopidogrel 75 Mg Tab PO 75 mg DAILY VANIA Administration Heparin Sodium (Porcine) 5,000 unit 01/09/21 16:00 Heparin Sodium,Porcine/Pf 5,000 Unit/0.5 Ml Syringe SQ Q8HR [facility] Sodium Chloride 1,000 mls @ 20 mls/hr 01/09/21 10:15 01/09/21 10:25 Saline 0.9% IV Not Given .Q24H [facility] Intake and Output 01/08/21 01/09/21 01/09/21 22:59 06:59 14:59 Intake Total 740 Balance 740 Intake: Intake, IV Titration 500 Amount Sodium Chloride 0.9% 1, 500 000 ml @ 100 mls/hr IV . Q10H [facility] Rx#:[id number] Oral 240 Other: Voiding Method Toilet Toilet # Voids 1 3 01/08/21 11:36 01/08/21 11:36
[2021-01-09] MEDS: HEPARIN SODIUM,PORCINE/PF 5,000 UNIT/0.5 ML SYRINGE SQ SCH (15:20)
--- NOTE | 2021-01-09 20:30 | P.PN ---
Subjective Progress Note Date: 01/09/21 Patient is a 61-year-old male with a known history of hypertension, hyperlipidemia currently not on any medications and occasional marijuana use presents to ER with complaints of blurry vision in the left eye. Patient felt like everything was collins when he closes his right eye. Patient was able to see well by closing left eye. Patient had this episode occurred about 2 days ago and lasted about 3 to 5 minutes. Since then patient has been having some blurry vision. Denied any fever or chills. No cough or sputum production. No recent infection. No chest pain or shortness breath. No palpitations. No leg swelling. No focal weakness or slurred speech. No complaints of double vision. No jaw pain or temporal pain jaw claudication. Patient states that he had [employer] COVID-19 vaccine about a month ago and started having occasional headaches few days after. CT head showed no acute intracranial process Chest x-ray showed no acute cardiopulmonary process EKG showed marked sinus bradycardia. Abnormal EKG. Heart rate for 42 Laboratory data showed WBC 6.0 hemoglobin 15.2 and platelets 206 BUN 18 and creatinine 0.85 AST 25 ALT 20 alk phos 37 troponin less than 0.012 and coronavirus PCR not detected. 01/09/2021 Patient is currently resting in the bed comfortably. Denied any left eye vision defects or blurry vision. Denied any focal weakness. No numbness or tingling. Denied any difficulty swallowing. No complaints of chest pain or shortness of breath. No nausea vomiting or abdominal pain or diarrhea. CT angiogram of the head and neck showed significant stenosis of proximal left internal carotid artery, complete occlusion of a short segment is felt present. There is poor diminished flow in the left internal carotid artery distal to this versus the opposite right side. Vascular surgery was consulted and cardiology was consulted for clearance. Neurology is on board. Vascular surgery is planning for left carotid endarterectomy scheduled for tomorrow. Active Medications Generic Name Dose Route Start Last Admin Trade Name Freq PRN Reason Stop Dose Admin Aspirin 81 mg 01/09/21 09:00 01/09/21 07:59 Aspirin 81 Mg PO 81 mg DAILY [facility]AN[facility] Administration Atorvastatin Calcium 40 mg 01/09/21 21:00 Atorvastatin 40 Mg Tab PO HS [facility] Clopidogrel Bisulfate 75 mg 01/09/21 09:00 01/09/21 07:59 Clopidogrel 75 Mg Tab PO 75 mg DAILY [facility]ANIA Administration Heparin Sodium (Porcine) 5,000 unit 01/09/21 16:00 01/09/21 15:20 Heparin Sodium,Porcine/Pf 5,000 Unit/0.5 Ml Syringe SQ 5,000 unit Q8HR [facility] Administration Sodium Chloride 1,000 mls @ 20 mls/hr 01/09/21 10:15 01/09/21 10:25 Saline 0.9% IV Not Given .Q24H [facility] Objective - Vital Signs Vital signs: Vital Signs Temp 98.2 F 01/09/21 15:00 Pulse 50 L 01/09/21 15:00 Resp 16 01/09/21 15:00 BP 141/85 01/09/21 15:00 Pulse Ox 98 01/09/21 15:00 Intake & Output 01/08/21 01/09/21 01/09/21 18:59 06:59 18:59 Intake Total 740 Balance 740 Weight 92.986 kg Intake: Intake, IV Titration 500 Amount Sodium Chloride 0.9% 1, 500 000 ml @ 100 mls/hr IV . Q10H [facility] Rx#:[id number] Oral 240 Other: Voiding Method Toilet Toilet # Voids 0 3 # Bowel Movements 0 - Exam PHYSICAL EXAMINATION: Patient is lying in the bed comfortably, no acute distress, awake alert and oriented.. HEENT: Normocephalic. Neck is supple. Pupils reactive. Nostrils clear. Oral cavity is moist. Ears reveal no drainage. Neck reveals no JVD, carotid bruits, or thyromegaly. CHEST EXAMINATION: Trachea is central. Symmetrical expansion. Lung serrano clear to auscultation and percussion. CARDIAC: Normal S1, S2 with no gallops. No murmurs ABDOMEN: Soft. Bowel sounds normal. No organomegaly. No abdominal bruits. Extremities: reveal no edema. No clubbing or cyanosis Neurologically awake, alert, oriented x3 with well-coordinated movements. No focal deficits noted Skin: No rash or skin lesions. Psychiatric: Coperative. Nonsuicidal Musculoskeletal: No joint swelling or deformity. Normal range of motion. - Labs CBC & Chem 7: 01/08/21 11:36 01/08/21 11:36 Labs: Abnormal Lab Results - Last 24 Hours (Table) 01/09/21 Range/Units 09:13 Cholesterol 218 H (<200) mg/dL LDL Cholesterol, Calc 161 H (0-99) mg/dL Assessment and Plan Assessment: Transient left eye vision loss. Rule out acute CVA. MRI pending Left internal carotid artery proximal stenosis greater than 70%. Sinus bradycardia Hypertension not on any medications Hyperlipidemia not on any medications at home History of marijuana use DVT prophylaxis Plan: Patient will be continued telemetry monitoring. Started on aspirin and Plavix as per neurology recommendations. Patient was given a dose of aspirin 325 mg once in the ER. Loading dose of Plavix was given. Stroke work-up including MRI of the brain and CT angiogram of the head and neck was ordered. 2D echocardiogram TSH A1c level and B12 and CRP levels WNL. Neurology is on board. Patient was found to have significant left internal carotid stenosis. Vascular surgery is planning for endarterectomy tomorrow. Further recommendations based on the clinical course. Time with Patient: Greater than 30
[2021-01-09] MEDS: ATORVASTATIN 40 MG TAB PO SCH (20:57)
[2021-01-09] MEDS ORDERED: ATORVASTATIN 80 MG TAB PO SCH (21:00)
[2021-01-10] MEDS: HEPARIN SODIUM,PORCINE/PF 5,000 UNIT/0.5 ML SYRINGE SQ SCH ×4 (02:16→23:51)
[2021-01-10] MEDS: ASPIRIN 81 MG PO SCH (09:13)
[2021-01-10 11:18] LABS: Basophils % (A) 0 %; Eosinophils # (A) 0.1 k/uL (0-0.7); Eosinophils % (A) 2 %; HCT 51.8 % (39.0-53.0); HGB 17.6 gm/dL (13.0-17.5); Lymphocytes # (A) 1.6 k/uL (1.0-4.8); Lymphocytes % (A) 23 %; MCH 30.6 pg (25.0-35.0); MCHC 34.1 g/dL (31.0-37.0); MCV 89.8 fL (80.0-100.0); Mean Platelet Volume 7.8; Monocytes # (A) 0.3 k/uL (0-1.0); Monocytes % (A) 4 %; Neutrophils # (A) 4.8 k/uL (1.3-7.7); Neutrophils % (A) 69 %; Platelet Count 221 k/uL (150-450); RBC 5.76 m/uL (4.30-5.90); RDW 13.1 % (11.5-15.5); WBC 6.9 k/uL (3.8-10.6)
[2021-01-10 11:32] LABS: African American GFR (CKD) >90 (>60 ml/min/1.73 sqM); Anion Gap 10 mmol/L; Blood Urea Nitrogen 15 mg/dL (9-20); Carbon Dioxide 25 mmol/L (22-30); Chloride 104 mmol/L (98-107); Glucose 98 mg/dL (74-99); Non-African American GFR(CKD) >90 (>60 ml/min/1.73 sqM); Potassium 4.3 mmol/L (3.5-5.1); Sodium 139 mmol/L (137-145)
[2021-01-10] MEDS ORDERED: LACTATED RINGERS 1,000 ML IV ONE ×3 (11:45→16:25)
[2021-01-10] MEDS ORDERED: ASPIRIN 325 MG TAB ONE (12:19)
[2021-01-10] MEDS ORDERED: ONDANSETRON 4 MG/2 ML VIAL ONE (12:19)
[2021-01-10] MEDS ORDERED: LIDOCAINE 1% (10MG/ML) FOR IV START INTRADERMA ONE (12:20)
[2021-01-10] MEDS ORDERED: MIDAZOLAM 2 MG/2 ML VIAL IVP ONE (12:32)
[2021-01-10] MEDS ORDERED: ONDANSETRON 4 MG/2 ML VIAL IVP ONE (12:32)
[2021-01-10] MEDS ORDERED: DEXAMETHASONE SOD PHOSPHATE 4 MG/ML 1 ML VIAL IVP ONE (12:32)
--- NOTE | 2021-01-10 13:07 | CONS ---
DEVAUGHN Claros is a 61-year-old gentleman who was admitted to the hospital with TIA and has left carotid stenosis for which he is to undergo surgery today and we were consulted for preop cardiac evaluation. The patient is doing well and did not have any new neurological deficits. He is currently on aspirin and Lipitor. PHYSICAL EXAMINATION: On exam, patient is comfortable at rest. Blood pressure is elevated at 177/96, heart rate is 64 beats per minute. Afebrile. Chest exam reveals good air entry bilaterally. Heart exam reveals first and second heart sounds. No gallop. Examination of extremities did not reveal any edema. ASSESSMENT: 1. Transient ischemic attack secondary to carotid stenosis. 2. Preop cardiac evaluation. 3. Hypertension. PLAN: If the patient continues to be hypertensive after surgery, please start the patient on an KELL inhibitor. Please arrange follow up with Cardiology in 4 weeks time. MMEDGARL / ELN: [id number] /
--- NOTE | 2021-01-10 13:28 | P.ANPRN ---
Procedure Note - Anesthesia - Invasive Line Right Arterial Line Time Out Performed: Yes Date of Procedure: 01/10/21 Time of Procedure: 12:45 Location of Patient: PreOp Preparation: Sterile Prep, Sterile Dressing Arterial Line Location: Radial Ultrasound Used: Yes Purpose - Visualization and Identification of Vasculature: Yes Needle Guage: 20 Image Stored and Saved: Yes Narrative: Central line placement per sterile protocol utilized.
[2021-01-10] MEDS ORDERED: PROTAMINE SULFATE 10 MG/ML 5 ML VIAL IV ONE (14:37)
[2021-01-10] MEDS ORDERED: LIDOCAINE 1% INJ 10MG/ML (20 ML MDV) ONE (14:37)
[2021-01-10] MEDS ORDERED: ROCURONIUM 10 MG/ML (5 ML VIAL) IV ONE (14:37)
[2021-01-10] MEDS ORDERED: HEPARIN SODIUM,PORCINE 10,000 UNIT/ML 1 ML VIAL ONE (14:37)
[2021-01-10] MEDS ORDERED: MIDAZOLAM 2 MG/2 ML VIAL ONE (14:37)
[2021-01-10] MEDS ORDERED: PHENYLEPHRINE-0.9% NACL SYG 1,000 MCG/10 ML SYRINGE ONE (14:37)
[2021-01-10] MEDS ORDERED: NEOSTIGMINE 1 MG/ML 10 ML VIAL ONE (14:37)
[2021-01-10] MEDS ORDERED: PROPOFOL 10 MG/ML 20 ML VIAL IV ONE (14:37)
[2021-01-10] MEDS ORDERED: GLYCOPYRROLATE 0.2 MG/ML 2 ML VIAL ONE ×2 (14:37)
[2021-01-10] MEDS ORDERED: SUCCINYLCHOLINE CHLORIDE 100 MG/5 ML SYR IV ONE (14:37)
[2021-01-10] MEDS ORDERED: fentaNYL (PF) 50 MCG/ML 2 ML AMP ONE (14:37)
[2021-01-10] MEDS ORDERED: SODIUM CHLORIDE 0.9% 100 ML with ceFAZolin 2,000 MG IV ONE ×2 (14:42)
[2021-01-10] MEDS ORDERED: IV FLUID CONTINUATION 1,000 ML IV ONE (14:42)
[2021-01-10] MEDS ORDERED: HEPARIN SODIUM (1,000 UNIT/ML) 2,000 UNIT in SODIUM CHLORIDE 0.9% 1,000 ML IRRIGATION ONE (15:01)
[2021-01-10] MEDS ORDERED: ceFAZolin 2 GM in SODIUM CHLORIDE 0.9% 500 ML 500 ML IRRIGATION ONE (15:23)
[2021-01-10] MEDS ORDERED: LIDOCAINE 1% INJ 10MG/ML (20 ML MDV) SQ ONE (15:26)
[2021-01-10] MEDS ORDERED: TRIMETHOBENZAMIDE 100 MG/ML 2 ML VIAL IM PRN (17:02)
[2021-01-10] MEDS ORDERED: BENZOCAINE/MENTHOL LOZENG 1 EACH LOZENGE MUCOUS MEM PRN (17:02)
[2021-01-10] MEDS ORDERED: ACETAMINOPHEN TAB 325 MG TAB PO PRN (17:02)
[2021-01-10] MEDS ORDERED: MAG HYDROX/AL HYDROX/SIMETH 30 ML CUP PO PRN (17:02)
--- NOTE | 2021-01-10 17:02 | P.OP ---
Date of Procedure: 01/10/21 Preoperative Diagnosis: Hemodynamically severe left ICA stenosis with history of transient ischemic attack Postoperative Diagnosis: Same. Procedure(s) Performed: Carotid endarterectomy with patch angioplasty. Anesthesia: MICHAELA Surgeon: Salvador Hsu Estimated Blood Loss (ml): 50 Urine output (ml): 0 Pathology: other (#1: left cervical lymph node. #2 left carotid plaque.) Condition: stable Disposition: ICU Indications for Procedure: Patient is a 61-year-old male who had presented with a history of 2 separate episodes of left hemispheric through vascular ischemia which has resolved. After the second event the patient presented the emergency room. Carotid duplex imaging was performed which demonstrated a peak systolic velocity within the left ICA at almost 400 cm/s with an ICA to CCA ratio of 8. CT angiogram confirmed hemodynamically severe left ICA stenosis. The patient's symptoms have remained at baseline and patient is offered a carotid endarterectomy. The procedure, risks as well as benefits were discussed with the patient and his . All questions were answered to patient and family satisfaction. Consent form was signed. Description of Procedure: Patient was brought the upper and placed in the supine position and administered general endotracheal anesthesia delivered by the department of anesthesiology. Patient's left lateral neck supraclavicular and anterior chest wall were sterilely prepped and draped in usual manner. Patient did receive 2 g of Ancef intravenously in the perioperative phase for prophylactic antibiotic therapy. Incision was made along the anterior border sternocleidomastoid muscle and carried down through the subcu change tissues. Hemostasis was achieved using electrocautery. Incision was deepened through the platysma and carried along the anterior border sternocleidomastoid muscle which was retracted posteriorly. The facial vein was identified and ligated with silk suture and divided. The carotid sheath was entered. The common carotid artery was identified and dissected free of investing tissues and encircled with Vesseloops. The dissection was carried to the level the carotid bulb. This point time the patient became slightly hypotensive and bradycardic and approximately 0.5 ML's of 1% Xylocaine was injected into the bulb area which resolved the patient's transient hypotension and bradycardia. Dissection was then carried along the external carotid artery where the superior thyroid and external carotid artery were dissected free of investing tissues and encircled with Vesseloops. The dissection was carried cephalad to a point passed the plaque where the artery was encircled Vesseloops. Both the hypoglossal and vagus nerves were identified and left undisturbed. The patient received an heparin intravenously and ACT was drawn. This was straightened adequate anticoagulation with an ACT of approximately 305. Vessel loops surrounding the external carotid and superior thyroid arteries were drawn closed followed by the internal carotid and common carotid arteries. Arteriotomy was made in the common and extended through the bulb into the internal carotid artery. Stump pressure was measured and was found to be 80 mmHg mean and thus no shunting was thought necessary. Endarterectomy was begun done at the common level and extended into the bulb. Retraction endarterectomy was performed on the external segment. Endarterectomy was continued into the internal carotid artery with the distal end feathered off quite well without the need for tacking suture. Patch angioplasty closure of the arteriotomy was performed with bovine pericardial patch and 6-0 Prolene suture placed in running fashion. Just prior to completion of the anastomotic line the internal carotid artery was backbled and no thrombus was retrieved. The internal was then occluded at its origin and the external carotid and common carotid arteries were flushed and again no thrombus was retrieved. The anastomotic line was completed. Vesseloops surrounding the internal carotid artery were loosened and the artery clamped at its origin. Vessel loops surrounding the superior thyroid, external carotid and finally the common carotid arteries were released thus flushing any potential debris into the external system. Flow was then restored into the internal system. Excellent pulse in the distal internal carotid artery was identified. The patient receive d 25 mg of protamine to help reverse the heparin effect. Topical thrombin and Gelfoam was laced about the anastomotic line followed by application of FloSeal. This allowed for hemostasis With the above findings noted the wound was gently irrigated. Deep tissues were closed with 3-0 Vicryl dermis was closed with 4-0 Monocryl placed in running intradermal fashion. Skin glue was placed along the incision. Patient tolerated procedure well awoke, without apparent neurologic complication and was transferred to the recovery area satisfactory and stable condition.
[2021-01-10] MEDS ORDERED: HYDROmorphone 0.5 MG/0.5 ML SYRINGE IVP ONE ×2 (17:20→17:52)
[2021-01-10] MEDS: NITROGLYCERIN-D5W PMX 50 MG in DEXTROSE/WATER 1 250ML.BAG IV SCH (18:26)
[2021-01-10] MEDS: PHENYLEPHRINE 40 MG in SODIUM CHLORIDE 0.9% 250 ML IV SCH ×2 (18:27→23:47)
[2021-01-10] MEDS: SODIUM CHLORIDE 0.9% 1,000 ML IV SCH (18:27)
[2021-01-10 18:50] LABS: Glucose,Whole Blood 110 mg/dL (75-99)
[2021-01-10] MEDS: LACTATED RINGERS 1,000 ML IV SCH ×2 (19:40→21:52)
[2021-01-10] MEDS ORDERED: ARTIFICIAL TEARS-HYPROMELLOSE DROPS 15 ML BTL LEFT EYE PRN (19:46)
[2021-01-10] MEDS: ATORVASTATIN 40 MG TAB PO SCH (20:42)
--- NOTE | 2021-01-10 21:10 | P.PN ---
Subjective Progress Note Date: 01/10/21 Principal diagnosis: Left eye vision deficit resolved now. Left ICA hemodynamically significant stenosis Patient is a 61-year-old male with a known history of hypertension, hyperl ipidemia currently not on any medications and occasional marijuana use presents to ER with complaints of blurry vision in the left eye. Patient felt like everything was collins when he closes his right eye. Patient was able to see well by closing left eye. Patient had this episode occurred about 2 days ago and lasted about 3 to 5 minutes. Since then patient has been having some blurry vision. Denied any fever or chills. No cough or sputum production. No recent infection. No chest pain or shortness breath. No palpitations. No leg swelling. No focal weakness or slurred speech. No complaints of double vision. No jaw pain or temporal pain jaw claudication. Patient states that he had J [employer] COVID-19 vaccine about a month ago and started having occasional headaches few days after. CT head showed no acute intracranial process Chest x-ray showed no acute cardiopulmonary process EKG showed marked sinus bradycardia. Abnormal EKG. Heart rate for 42 Laboratory data showed WBC 6.0 hemoglobin 15.2 and platelets 206 BUN 18 and creatinine 0.85 AST 25 ALT 20 alk phos 37 troponin less than 0.012 and coronavirus PCR not detected. 01/09/2021 Patient is currently resting in the bed comfortably. Denied any left eye vision defects or blurry vision. Denied any focal weakness. No numbness or tingling. Denied any difficulty swallowing. No complaints of chest pain or shortness of breath. No nausea vomiting or abdominal pain or diarrhea. CT angiogram of the head and neck showed significant stenosis of proximal left internal carotid artery, complete occlusion of a short segment is felt present. There is poor diminished flow in the left internal carotid artery distal to this versus the opposite right side. Vascular surgery was consulted and cardiology was consulted for clearance. Neurology is on board. Vascular surgery is planning for left carotid endarterectomy scheduled for to dilcia. 01/10/2021 Patient is currently lying in the bed comfortably. No complaints of chest pain or shortness of breath. No complaints of left eye vision deficit. MRI of the brain showed no evidence of recent infarct. Mild nonspecific white matter changes most likely on the basis of Chronic small vessel ischemic changes in position of the ears. Laboratory data reviewed. Patient is scheduled for left carotid endarterectomy today. Active Medications Generic Name Dose Route Start Last Admin Trade Name Louis PRN Reason Stop Dose Admin Aspirin 81 mg 01/09/21 09:00 01/09/21 07:59 Aspirin 81 Mg PO 81 mg DAILY VANIA Administration Atorvastatin Calcium 40 mg 01/09/21 21:00 Atorvastatin 40 Mg Tab PO HS [facility]ANIA Clopidogrel Bisulfate 75 mg 01/09/21 09:00 01/09/21 07:59 Clopidogrel 75 Mg Tab PO 75 mg DAILY [facility]ANIA Administration Heparin Sodium (Porcine) 5,000 unit 01/09/21 16:00 01/09/21 15:20 Heparin Sodium,Porcine/Pf 5,000 Unit/0.5 Ml Syringe SQ 5,000 unit Q8HR [facility]ANIA Administration Sodium Chloride 1,000 mls @ 20 mls/hr 01/09/21 10:15 01/09/21 10:25 Saline 0.9% IV Not Given .Q24H [facility] Objective - Vital Signs Vital signs: Vital Signs Temp 97.6 F 01/10/21 11:45 Pulse 52 L 01/10/21 12:47 Resp 17 01/10/21 14:25 BP 170/90 01/10/21 14:25 Pulse Ox 98 01/10/21 14:25 Intake & Output 01/09/21 01/10/21 01/10/21 18:59 06:59 18:59 Intake Total 740 240 Balance 740 240 Intake: Intake, IV Titration 500 Amount Sodium Chloride 0.9% 1, 500 000 ml @ 100 mls/hr IV . Q10H [facility] Rx#:[id number] Oral 240 240 - Exam PHYSICAL EXAMINATION: Patient is lying in the bed comfortably, no acute distress, awake alert and oriented.. HEENT: Normocephalic. Neck is supple. Pupils reactive. Nostrils clear. Oral cavity is moist. Ears reveal no drainage. Neck reveals no JVD, carotid bruits, or thyromegaly. CHEST EXAMINATION: Trachea is central. Symmetrical expansion. Lung serrano clear to auscultation and percussion. CARDIAC: Normal S1, S2 with no gallops. No murmurs ABDOMEN: Soft. Bowel sounds normal. No organomegaly. No abdominal bruits. Extremities: reveal no edema. No clubbing or cyanosis Neurologically awake, alert, oriented x3 with well-coordinated movements. No focal deficits noted Skin: No rash or skin lesions. Psychiatric: Coperative. Nonsuicidal Musculoskeletal: No joint swelling or deformity. Normal range of motion. - Labs CBC & Chem 7: 01/10/21 10:03 01/10/21 10:03 Labs: Abnormal Lab Results - Last 24 Hours (Table) 01/10/21 Range/Units 10:03 Hgb 17.6 H (13.0-17.5) gm/dL Assessment and Plan Assessment: Transient left eye vision loss. Rule out acute CVA. MRI showed no acute infarct Left internal carotid artery proximal stenosis greater than 70%.Patient is scheduled for left carotid endarterectomy today. Sinus bradycardia Hypertension not on any medications Hyperlipidemia not on any medications at home History of marijuana use DVT prophylaxis Plan: Patient will be continued telemetry monitoring. Started on aspirin and Plavix as per neurology recommendations. Patient was given a dose of aspirin 325 mg once in the ER. Loading dose of Plavix was given. Stroke work-up including MRI of the brain and CT angiogram of the head and neck was ordered. 2D echocardiogram TSH A1c level and B12 and CRP levels WNL. Neurology and vasc sx is on board. Patient was found to have significant left internal carotid stenosis. Vascular surgery is planning for endarterectomy tomorrow. Further recommendations based on the clinical course. Time with Patient: Greater than 30
[2021-01-11] MEDS: HYDROcodone/APAP 5-325MG 1 EACH TAB PO PRN ×2 (01:50→08:15)
[2021-01-11 04:38] LABS: Basophils % (A) 0 %; Eosinophils % (A) 0 %; HCT 47.1 % (39.0-53.0); HGB 15.2 gm/dL (13.0-17.5); Lymphocytes # (A) 1.3 k/uL (1.0-4.8); Lymphocytes % (A) 12 %; MCH 29.5 pg (25.0-35.0); MCHC 32.3 g/dL (31.0-37.0); MCV 91.3 fL (80.0-100.0); Monocytes # (A) 0.6 k/uL (0-1.0); Monocytes % (A) 5 %; Neutrophils # (A) 9.2 k/uL (1.3-7.7); Neutrophils % (A) 82 %; Platelet Count 221 k/uL (150-450); RBC 5.16 m/uL (4.30-5.90); RDW 13.7 % (11.5-15.5); WBC 11.3 k/uL (3.8-10.6)
[2021-01-11 05:00] LABS: ALT 18 U/L (4-49); AST 21 U/L (17-59); African American GFR (CKD) >90 (>60 ml/min/1.73 sqM); Albumin 3.7 g/dL (3.5-5.0); Alkaline Phosphatase 44 U/L (38-126); Anion Gap 8 mmol/L; Blood Urea Nitrogen 14 mg/dL (9-20); Calcium 9.5 mg/dL (8.4-10.2); Carbon Dioxide 25 mmol/L (22-30); Chloride 103 mmol/L (98-107); Glucose 105 mg/dL (74-99); Non-African American GFR(CKD) >90 (>60 ml/min/1.73 sqM); Potassium 4.3 mmol/L (3.5-5.1); Sodium 136 mmol/L (137-145); Total Bilirubin 1.2 mg/dL (0.2-1.3); Total Protein 6.4 g/dL (6.3-8.2)
[2021-01-11] MEDS: NITROGLYCERIN-D5W PMX 50 MG in DEXTROSE/WATER 1 250ML.BAG IV SCH (07:55)
[2021-01-11] MEDS: ASPIRIN 81 MG PO SCH (08:14)
[2021-01-11] MEDS: HEPARIN SODIUM,PORCINE/PF 5,000 UNIT/0.5 ML SYRINGE SQ SCH (08:14)
[2021-01-11 08:36] VITALS: TEMP 98.1
--- NOTE | 2021-01-11 10:38 | P.PN ---
Subjective Progress Note Date: 01/11/21 Harlan is seen and examined. Overall he is doing quite well. He had no issues overnight. His neck is soft clean dry and intact. No hematoma. Cranial nerves II through XII grossly intact. At this point from my standpoint he is found to be in satisfactory condition for discharge. Home going instructions were given to him. He'll be given prescriptions for aspirin, Plavix and be continued on his statin medication. He should follow up with Dr. Morales in the office in approximately 2 weeks Objective - Vital Signs Vital signs: Vital Signs Temp 98.1 F 01/11/21 08:00 Pulse 81 01/11/21 10:00 Resp 18 01/11/21 10:00 BP 153/104 01/11/21 10:00 Pulse Ox 95 01/11/21 10:00 Intake & Output 01/10/21 01/11/21 01/11/21 18:59 06:59 18:59 Intake Total 1642 1100 200 Output Total 50 1650 400 Balance 1592 -550 -200 Weight 95 kg Intake: IV 1402 1100 200 Lactated Ringers 1,000 ml 1100 200 @ 100 mls/hr IV .Q10H VANIA Rx#:[id number] Oral 240 Output: Urine 1650 400 Estimated Blood Loss 50 Other: Voiding Method Urinal Urinal # Voids 0 ABP, PAP, CO, CI - Last Documented Arterial Blood Pressure 133/88 - Labs CBC & Chem 7: 01/11/21 04:00 01/11/21 04:00 Labs: Abnormal Lab Results - Last 24 Hours (Table) 01/10/21 01/10/21 01/11/21 Range/Units 10:03 18:48 04:00 WBC 11.3 H (3.8-10.6) k/uL Hgb 17.6 H (13.0-17.5) gm/dL Neutrophils # 9.2 H (1.3-7.7) k/uL Sodium (137-145) mmol/L Glucose (74-99) mg/dL POC Glucose (mg/dL) 110 H (75-99) mg/dL 01/11/21 Range/Units 04:00 WBC (3.8-10.6) k/uL Hgb (13.0-17.5) gm/dL Neutrophils # (1.3-7.7) k/uL Sodium 136 L (137-145) mmol/L Glucose 105 H (74-99) mg/dL POC Glucose (mg/dL) (75-99) mg/dL
[2021-01-11 11:12] VITALS: BP 155/102; PULSE 72; RESP 15
== END 2021-01-11 12:20 | disposition home or self-care (01) | DRG 39 ==
LOC: EC 10:43 → 6NMEDSUR 12:53 → 1SOBS 14:08 → OBSVTOIN 01-09 15:45 → 2SICU 01-10 17:22
PROVIDERS: ADMIT Internal Medicine; ATTEND Internal Medicine
PROC: 03UL0KZ Supplement Left Internal Carotid Artery with Nonautologous Tissue Substitute, Open Approach (ICD-10-PCS; principal; 2021-01-09)
PROC: 03CL0ZZ Extirpation of Matter from Left Internal Carotid Artery, Open Approach (ICD-10-PCS; principal; 2021-01-09)
DX: I65.22 Occlusion and stenosis of left carotid artery (principal); I10 Essential (primary) hypertension; E78.5 Hyperlipidemia, unspecified; E78.00 Pure hypercholesterolemia, unspecified; M10.9 Gout, unspecified; H54.62 Unqualified visual loss, left eye, normal vision right eye; R00.1 Bradycardia, unspecified; Z20.822 Contact with and (suspected) exposure to COVID-19; Z96.652 Presence of left artificial knee joint; Z90.49 Acquired absence of other specified parts of digestive tract; Z87.19 Personal history of other diseases of the digestive system; Z83.3 Family history of diabetes mellitus; Z87.891 Personal history of nicotine dependence; Z91.14 Patient's other noncompliance with medication regimen
CPT/HCPCS: 36415; 70450; 70496; 70498; 70551; 71046; 80048; 80053; 80061; 82607; 83036; 84443; 84484; 85025; 85610; 85652; 85730; 86140; 86850; 86900; 86901; 87635; 88304; 88305; 88311; 93005; 93306; 93880; 99285

== ENCOUNTER 2022-04-15 06:02 | Emergency (ER) | payer BC ==
[2022-04-15 06:09] VITALS: RESP 16; TEMP 98.2
[2022-04-15] MEDS ORDERED: DEXAMETHASONE SOD PHOSPHATE 10 MG/ML 1 ML VIAL IM STA (06:20)
--- NOTE | 2022-04-15 06:38 | XR ---
EXAMINATION TYPE: XR lumbar spine 2 or 3V DATE OF EXAM: 04/15/2022 COMPARISON: NONE HISTORY: Back pain TECHNIQUE: 3 view FINDINGS: Lumbar vertebra have normal alignment. There is spurring of the endplates throughout the navdeep mbar spine. No compression fracture. Posterior elements are intact. There is mild narrowing of the navdeep mbar disc spaces. Sacroiliac joints are intact. IMPRESSION: Multilevel ordinary spondylotic changes. No fracture.
--- NOTE | 2022-04-15 06:39 | XR ---
EXAMINATION TYPE: XR sacroiliac joint comp BILAT DATE OF EXAM: 04/15/2022 COMPARISON: NONE HISTORY: Pain TECHNIQUE: 3 views FINDINGS: The sacroiliac joints appear normal. There are no erosions. There is no sclerosis. IMPRESSION: Normal exam. No evidence of sacroiliitis.
--- NOTE | 2022-04-15 06:45 | ED ---
Back Pain HPI - General Chief Complaint: Back Pain/Injury Stated Complaint: Lower back pain Time Seen by Provider: 04/15/22 06:11 Source: patient, RN notes reviewed Limitations: no limitations - History of Present Illness Initial Comments: This is a 62 year old male who presents to the emergency department for right lower back pain. States this began approximately one week ago and was sudden in onset. The pain has started to radiate down the posterior aspect of the right thigh and wraparound to the front of the calf, going into the right foot. States that he has not had any relief with Advil and has never experienced anything like this in the past. He does believe that he further exacerbated this 4 days ago, as he was on a long road trip and was taking care of his da ericka's dogs. He does note that applying heat seems to make the pain worse. Denies any loss of bowel or bladder control or saddle anesthesia. Denies any fevers, chills, sore throat, cough, dyspnea, chest pain, palpitations, abdominal pain, nausea, vomiting, diarrhea, or headaches. MD Complaint: back pain Onset/Timin -: week(s) Similar Symptoms Previously: No - Related Data Previous Rx's Medication Instructions Recorded Aspirin 81 mg PO DAILY #30 chew 01/11/21 Atorvastatin [Lipitor] 40 mg PO HS #30 tab 01/11/21 Clopidogrel Bisulfate [Plavix] 75 mg PO DAILY #30 tab 01/11/21 Diclofenac Sodium [Voltaren] 75 mg PO BID PRN #25 tab 04/15/22 HYDROcodone/APAP 5-325MG [Vickery 1 tab PO Q6HR PRN 3 Days #12 tab 04/15/22 5-325] Metaxalone [Skelaxin] 800 mg PO TID PRN #25 tablet 04/15/22 Allergies Allergy/AdvReac Type Severity Reaction Status Date / Time No Known Allergies Allergy Verified 04/15/22 06:06 Review of Systems ROS Statement: Those systems with pertinent positive or pertinent negative responses have been documented in the HPI. ROS Other: All systems not noted in ROS Statement are negative. Past Medical History Past Medical History: Hyperlipidemia, Hypertension Additional Past Medical History / Comment(s): PAST HX HYPOGLYCEMIA, NONE SINCE 2000. GOUT. CURRENT RT INGUINAL HERNIA. History of Any Multi-Drug Resistant Organisms: None Reported Past Surgical History: Appendectomy, Joint Replacement Additional Past Surgical History / Comment(s): COLONOSCOPY. TOTAL LT KNEE , ROBOTIC HERNIA Past Anesthesia/Blood Transfusion Reactions: No Reported Reaction Additional Past Anesthesia/Blood Transfusion Reaction / Comment(s): ADOPTED -NO HISTORY Past Psychological History: No Psychological Hx Reported Smoking Status: Never smoker Past Alcohol Use History: Occasional Past Drug Use History: Marijuana - Past Family History Mother Family Medical History: Unable to Obtain Additional Family Medical History / Comment(s): Pt is adopted and only knows heart disease ran on natural mother's side of family Father Family Medical History: Diabetes Mellitus Additional Family Medical History / Comment(s): Pt is adopted and only knows diabetes ran on natural father's side of family. General Exam Limitations: no limitations General appearance: alert, in no apparent distress Head exam: Present: atraumatic, normocephalic, normal inspection Respiratory exam: Present: normal lung sounds bilaterally. Absent: respiratory distress, wheezes, rales, rhonchi, stridor Cardiovascular Exam: Present: regular rate, normal rhythm, normal heart sounds. Absent: systolic murmur, diastolic murmur, rubs, gallop, clicks Back exam: Present: normal inspection, full ROM, tenderness (Right sciatic notch) Neurological exam: Present: alert, oriented X3, CN II-XII intact Psychiatric exam: Present: normal affect, normal mood Skin exam: Present: warm, dry, intact, normal color. Absent: rash Course Vital Signs 04/15/22 04/15/22 06:06 08:53 Temperature 98.2 F Pulse Rate 79 74 Respiratory 16 16 Rate Blood Pressure 191/110 152/94 O2 Sat by Pulse 98 98 Oximetry Medical Decision Making - Medical Decision Making This is a 62-year-old male who presents to the emergency department for right lower back pain with radicular symptoms down the right leg. X-rays revealed mild narrowing of the lumbar spaces, however no acute findings were noted. Patient was given a dose of IM Decadron to help with possible swelling and inflammation around a nerve root. Based on the dermatome distribution of his symptoms, this is most likely related to L4-L5. He is exhibiting no signs or symptoms of cauda equina syndrome. Computed tomography scan of the lumbar spine was obtained for further evaluation of symptoms. This revealed degenerative changes at multiple levels. No evidence of a AAA was identified. Patient given follow up information for Dr. Felix. Rx for Skelaxin and diclofenac were provided. Instructed him to take the Skelaxin at night until he knows how to affects him, as it can be sedating. He is also advised to avoid taking the diclofenac with any other anti-inflammatories. Return precautions reviewed in depth, the patient is instructed to return to the emergency department with any new, worsening, or concerning symptoms. Patient verbalized understanding. This case was discussed in detail with the attending ED physician. Presentation, findings, and treatment plan discussed in detail as well. - Radiology Data Radiology results: report reviewed, image reviewed Disposition Clinical Impression: Lumbar radiculopathy Disposition: HOME SELF-CARE Instructions (If sedation given, give patient instructions): Lumbar Radiculopathy (ED) Additional Instructions: Return to the emergency department with any new, worsening, or concerning symptoms. Do not take the diclofenac with any other anti-inflammatories. Take either the diclofenac or Advil. Take Tylenol with this. Take the Skelaxin at night until you how it affects you, as it may be sedating. Contact Dr. Felix's office for a follow-up appointment. Prescriptions: HYDROcodone/APAP 5-325MG [Vickery 5-325] 1 tab PO Q6HR PRN 3 Days #12 tab PRN Reason: Pain Metaxalone [Skelaxin] 800 mg PO TID PRN #25 tablet PRN Reason: Pain Diclofenac Sodium [Voltaren] 75 mg PO BID PRN #25 tab PRN Reason: Pain Is patient prescribed a controlled substance at d/c from ED?: Yes When asked, does pt state using other controlled substances?: No If prescribed controlled substance>3 days was MAPS reviewed?: Prescribed <3 Days Referrals: Servando Cruz III, MD [Primary Care Provider] - 1-2 days Margie Felix DO [Doctor of Osteopathic Medicine] - 1-2 days
[2022-04-15] MEDS ORDERED: HYDROmorphone 0.5 MG/0.5 ML SYRINGE IM STA (06:55)
[2022-04-15] MEDS ORDERED: LIDOCAINE 5% PATCH TOPICAL SCH (07:15)
--- NOTE | 2022-04-15 08:17 | CT ---
EXAMINATION TYPE: CT lumbar spine wo con DATE OF EXAM: 04/15/2022 COMPARISON: Plain film 04/15/2022 HISTORY: Low back pain CT DLP: 981.6 mGycm Automated exposure control for dose reduction was used. An unenhanced CT of the lumbar spine was performed. Bone and soft tissue window settings are submitt ed as well as coronal and sagittal reconstructions. FINDINGS: Lumbar vertebral bodies are intact. There is preserved height and bone mineralization. Minimal retrol isthesis grade 1 L4-5, anterolisthesis grade 1 at L3-4. Loss of disc height is present especially at L2-3 greater than L3-4 and L4-5. Vacuum phenomenon present at L4-5. There is multilevel spondylosis. Incidental note made of diverticular change in the sigmoid colon. Probable cortical cyst present at t he upper pole the left kidney measures 14 mm. L1-L2: Normal disc space height. No disc herniation protrusion or central stenosis. No facet joint arthropathy. No evidence for foraminal encroachment. L2-L3: Posterior extension endplate disc complex causes mild anterior mass effect on the thecal sac. No significant foraminal encroachment or spinal stenosis. L3-L4: Listhesis contributes to cause spinal stenosis, there is hypertrophic change of the facets cau sing posterior lateral mass effect on the thecal sac and resulting in moderate to severe spinal steno sis, there is an accompanying mild circumferential posterior disc bulge. There may be some mild left- sided foraminal encroachment due to circumferential extension endplate disc complex. L4-L5: Circumferential posterior disc bulge causes anterior mass effect on the thecal sac. Hypertroph y ligamentum flavum causes some posterior lateral mass effect on the thecal sac. No significant spina l stenosis or foraminal encroachment. L5-S1: Posterior broad-based disc bulge causes mild anterior mass effect on the thecal sac. Circumfer ential extension of endplate disc complex results in foraminal encroachment right greater than left. There is facet arthropathy change. No evident spinal stenosis. IMPRESSION: Spinal stenosis, degenerative disc disease, facet arthropathy and foraminal encroachment as described ..
[2022-04-15 08:57] VITALS: BP 152/94; PULSE 74
== END 2022-04-15 08:53 | disposition home or self-care (01) ==
LOC: EC 06:02
DX: M54.16 Radiculopathy, lumbar region (principal); I10 Essential (primary) hypertension
CPT/HCPCS: 72100; 72202; 72131; 99284; 96372; J1100; J1170